=== PATIENT | male | born 1975 | race Caucasian/White ===

== ENCOUNTER 2016-05-31 12:15 | Emergency (ER) | payer BC ==
[~2016-05-31] VITALS: Ht 182.9 cm; Wt 117.9 kg
[~2016-05-31 12:15] MED LIST: AMBIEN 10 MG TA10 MG PO; ATENOLOL 25 MG25 M1 PG; CLONIDINE HCL0.2 M2 GT; HYDROCODON-ACE1 EAC7; IBUPROFEN 800800 MG PO; LAMICTAL XR300 MG PO; SOMA250 MG PO; ULTRAM 50MG TAB50 MG PO
[2016-05-31] MEDS ORDERED: ESKALITH CR450 MG PO (12:42)
[2016-05-31] MEDS ORDERED: PROZAC20 MG PO (12:43)
[2016-05-31] MEDS ORDERED: CLONAZEPAM 0.50.5 M1 PO (12:43)
[2016-05-31] MEDS ORDERED: PRIMIDONE50 MG PO (12:43)
[2016-05-31] MEDS ORDERED: ZIPRASIDONE HCL40 MG PO (12:44)
[2016-05-31] MEDS ORDERED: LAMOTRIGINE200 MG PO (12:44)
[2016-05-31 12:53] LABS: HEMATOCRIT 42.1 % (42.0-52.0); HEMOGLOBIN 14.9 gm/dL (14.0-18.0); MCH 34.5 pg (26.0-34.0); MCHC 35.3 g/dL (28.0-37.0); MCV 97.5 fL (80.0-100.0); RBC 4.32 mil/uL (4.50-6.00); RDW 12.4 % (10.5-14.5); WBC 10.1 thou/uL (4.0-11.0)
[2016-05-31 12:58] LABS: ABG SAMPLE TYPE VENOUS; BE(vivo) -1.4 mmol/L (-2 to +3); O2(CT) 18.4 mL/dL (15.0-23.0); O2Hb VENOUS 82.7 (65.0-85.0); PCO2 VENOUS 38.2 mmHg (41.0-51.0); sO2 VENOUS 82.1 % (65.0-85.0); tCO2 24.2 mmol/L (24.0-30.0)
[2016-05-31 13:01] LABS: URINE BILIRUBIN NEGATIVE (Negative); URINE BLOOD NEGATIVE (Negative); URINE COLOR YELLOW; URINE GLUCOSE-RANDOM* 3+ (Negative); URINE KETONES NEGATIVE (Negative); URINE LEUKOCYTES-REFLEX NEGATIVE (Negative); URINE PROTEIN (DIPSTICK) NEGATIVE (Negative); URINE UROBILINOGEN 0.2 E.U./dl (0.2-1.0)
[2016-05-31 13:01] LABS: CALCIUM 8.9 mg/dL (8.5-10.1); CREATININE 1.3 mg/dL (0.7-1.3); POTASSIUM 4.6 mmol/L (3.5-5.1)
[2016-05-31] MEDS ORDERED: METFORMIN HCL500 MG PO (15:09)
[2016-05-31 15:56] VITALS: BP 132/85
== END 2016-05-31 15:58 | disposition home or self-care (01) ==
LOC: ER 12:15
PROVIDERS: Emergency Medicine
DX: E11.8 Type 2 diabetes mellitus with unspecified complications (principal); F31.9 Bipolar disorder, unspecified; Z98.890 Other specified postprocedural states